=== PATIENT | male | born 1965 | race Caucasian/White ===

== ENCOUNTER 2019-08-21 06:28 | Day surgery (SDC) | payer OTHER ==
[~2019-08-21] VITALS: Ht 185.4 cm; Wt 144.7 kg
--- NOTE | ~2019-08-21 | O ---
[facility] [place] [address] OPERATIVE REPORT Name: MALLORY MITCHELL Room #: [facility]#: [id number] Admission: 08/21/19 Attend Phys: REYNA Kwok Discharge: 08/21/19 Date of : 65 Report #: [id number] THIS REPORT FOR: cc: Omer Anders MD,Omer Steele,David Vargas DPM ~ CC: Omer Steele DATE OF SERVICE: 08/21/2019 SURGEON: David Steele DPM PREOPERATIVE DIAGNOSES: 1. Hallux abductus interphalangeus first toe, right foot. 2. Chronic wound first toe, right foot. POSTOPERATIVE DIAGNOSES: 1. Hallux abductus interphalangeus first toe, right foot. 2. Chronic wound first toe, right foot. OPERATIVE PROCEDURE: Arthrodesis interphalangeal joint, first toe, right foot. ANESTHESIA: General endotracheal. HEMOSTASIS: Ankle tourniquet 250 mmHg. ESTIMATED BLOOD LOSS: Less than 5 mL. COMPLICATIONS: None. DESCRIPTION OF PROCEDURE: The procedure is as follows: The patient was taken to the OR in satisfactory condition and placed on the table in the supine position. Following satisfactory administration of a general endotracheal intubation anesthesia, a total of 10 mL of a 50:50 mixture of 1% plain lidocaine and 0.5% plain Marcaine was used in a digital block of the first toe, right foot. A well-padded ankle tourniquet was placed around the right ankle. The foot was then prepped and draped in the usual sterile manner. An Esmarch bandage was used to exsanguinate the right foot and the ankle tourniquet was inflated to 250 mmHg. Attention was directed to the IP joint of the first toe where a linear incision was made medial to the course of the extensor tendon. The incision was deepened through sharp and blunt dissection and all bleeders were clamped and bovied as deemed necessary. The incision was carried down through the subcutaneous tissue to the level of the extensor tendon. A transverse tenotomy was made at the joint, the tendon was reflected both proximally and distally. Sharp dissection was used to free the medial and [facility] [address] [place] [address] OPERATIVE REPORT Name: PAULAMALLORY Asad [id number] Admission: 08/21/19 Attend Phys: REYNA Kwok Discharge: 08/21/19 Date of : 65 Report #: [id number] lateral collateral ligaments. A power sagittal saw was then used to resect the cartilaginous surface from the distal aspect of the proximal phalanx and the base of the distal phalanx. The cut at the proximal phalanx was made with more bone resected on the medial aspect in order to reduce the angulated deformity of the digit. A 2.0 drill bit was used to fenestrate the distal aspect of the proximal phalanx and base of the distal phalanx. The toe was then placed in proper anatomical position and excellent reduction of the original deformity was appreciated. A guidewire for a 4.0 cannulated screw was driven from the base of the distal phalanx out the end of the toe. The toe was then positioned in corrected alignment and the arthrodesis site was compressed upon itself. The K-wire was then driven down the shaft of the proximal phalanx. Proper length and position of the K-wire was confirmed by fluoroscopy. A stab incision was made at the exit site of the pin at the distal aspect of the toe with a 15 blade. Using standard ORIF technique, a 4.0 cannulated screw was placed over the K-wire and driven down the distal and proximal phalanx. Excellent compression of the arthrodesis site was appreciated. Due to the previous fracture at the interphalangeal joint, osseous defect was noted following compression of the arthrodesis. Portions of bone from the resected portion of the distal phalanx was obtained with a rongeur and placed into the defect at the arthrodesis site. Excellent reduction of the original deformity was appreciated with the use of fluoroscopy. The extensor tendon was coapted using #3-0 Vicryl in a simple interrupted manner. Subcutaneous tissue was closed using #4-0 Vicryl in a simple interrupted manner. Skin closure was obtained using #4-0 Prolene in a simple interrupted fashion. The skin incision was dressed with Betadine impregnated Adaptic, 4 x 4 gauze overlying Adryan maintaining the corrected alignment of the digit. The ankle tourniquet was released and normal vascular status returned to all digits of the right foot. An Aris bandage was then applied overlying the right foot and ankle. The patient tolerated the procedure and anesthesia well and left the OR in satisfactory condition with vital signs stable. By: [id number] David Steele DPM /alex
[~2019-08-21 06:28] MED LIST: ASPIRIN325 PO; BASAGLAR K100 UNIT/1 SUBQ; CARDURA1 MG PO; CARVEDILOL12.5 MG PO; GLIMEPIRIDE4 MG PO; IRON18 M1 PO; LIPITOR40 MG PO; LISINOPRIL2.5 MG PO; MAGNESIUM400 MG PO; PLAVIX 75 MG TA75 MG PO; SODIUM BICARBO650 M3 PO; VITAMIN D21250 MC1 PO
[2019-08-21 07:38] VITALS: BP 114/60
[2019-08-21 07:57] LABS: CALCIUM 9.1 mg/dL (8.5-10.1); CREATININE 1.7 mg/dL (0.7-1.3); HEMATOCRIT 42.7 % (42.0-52.0); HEMOGLOBIN 14.2 gm/dL (14.0-18.0)
[2019-08-21 08:03] LABS: TOTAL BILIRUBIN 0.9 mg/dL (<0.1-1.0); TOTAL PROTEIN 7.2 g/dL (6.4-8.2)
[2019-08-21 08:04] LABS: POTASSIUM 5.3 mmol/L (3.5-5.1)
[2019-08-21 10:44] VITALS: BP 114/60
== END 2019-08-21 11:30 | disposition home or self-care (01) ==
LOC: OR 06:28 → TBA 06:49 → OR 09:30
PROVIDERS: Podiatrist
DX: M20.11 Hallux valgus (acquired), right foot (principal); S91.101A Unspecified open wound of right great toe without damage to nail, initial encounter; I10 Essential (primary) hypertension; E78.00 Pure hypercholesterolemia, unspecified; E11.9 Type 2 diabetes mellitus without complications; I25.2 Old myocardial infarction; D64.9 Anemia, unspecified; N28.9 Disorder of kidney and ureter, unspecified; Z98.890 Other specified postprocedural states; Z79.899 Other long term (current) drug therapy; Z87.891 Personal history of nicotine dependence; X58.XXXA Exposure to other specified factors, initial encounter; Y93.89 Activity, other specified; Y92.89 Other specified places as the place of occurrence of the external cause; Y99.8 Other external cause status
CPT/HCPCS: 50010; 50101; 50386; 50951; 56526; 57091; 57178; 5725; 5726; 62110; 62900; 70005